=== PATIENT | female | born 1975 | race Asian ===

== ENCOUNTER → 2017-07-02 | Outpatient (CLI) | payer OTHER | LOC: CFH 15:55 | PROVIDERS: ATTEND Obstetrics & Gynecology | DX: Z12.31 Encounter for screening mammogram for malignant neoplasm of breast (principal) | CPT/HCPCS: 77067 ==

== ENCOUNTER 2018-05-03 01:51 | Emergency (ER) | payer OTHER ==
[~2018-05-03] VITALS: Ht 165.1 cm; Wt 87.0 kg
[2018-05-03 01:58] VITALS: BP 134/85
[2018-05-03] MEDS ORDERED: PHENAZOPYRIDINE 200 MG TABLET PO ONE (02:00)
--- NOTE | 2018-05-03 02:02 | NUR ---
TASK RN: ALIDA COLLECTED AND SENT TO LAB
[2018-05-03] MEDS ORDERED: PHENAZOPYRIDINE 200 MG TABLET ONE (02:11)
[2018-05-03 02:12] LABS: HCG UR SG 1.006 (1.003-1.030); MICROSCOPIC AUTO
[2018-05-03 02:14] LABS: CULTURE INDICATED? YES
[2018-05-03] MEDS ORDERED: CIPROFLOXACIN 500 MG TABLET PO ONE (02:30)
[2018-05-03] MEDS ORDERED: CIPROFLOXACIN 500 MG TABLET ONE (02:33)
--- NOTE | 2018-05-03 02:47 | NUR ---
Patient given discharge instructions and they have confirmed that they understand the instructions. Patient ambulatory with steady gait.
== END 2018-05-03 02:49 | disposition home or self-care (01) ==
LOC: ED 02:24
DX: N30.00 Acute cystitis without hematuria (principal)
CPT/HCPCS: 81001; 81025; 87077; 87086; 87186; 99283